=== PATIENT | male | born 2000 | race Caucasian/White ===

== ENCOUNTER → 2021-09-04 16:38 | Outpatient (BNVA) | payer MEDICAID, SELFPAY | PROVIDERS: Visit Provider Emergency Medicine | DX: R31.9 Hematuria, unspecified (principal); K62.5 Hemorrhage of anus and rectum; R19.8 Other specified symptoms and signs involving the digestive system and abdomen | CPT/HCPCS: 81000; 82270; 85014; 85018 ==

== ENCOUNTER → 2021-12-10 18:17 | Outpatient (BNVA) | payer MEDICAID, SELFPAY | PROVIDERS: Visit Provider Emergency Medicine | DX: B34.9 Viral infection, unspecified (principal); Z20.822 Contact with and (suspected) exposure to COVID-19 | CPT/HCPCS: 87426 ==

== ENCOUNTER → 2022-02-12 16:16 | Outpatient (BNVA) | payer MEDICAID, SELFPAY | PROVIDERS: Visit Provider Nurse Practitioner Family | DX: J02.9 Acute pharyngitis, unspecified (principal); J01.00 Acute maxillary sinusitis, unspecified | CPT/HCPCS: 87071; 87880 ==

== ENCOUNTER → 2022-03-24 12:16 | Outpatient (BNVA) | payer MEDICAID, SELFPAY | PROVIDERS: Visit Provider Nurse Practitioner Family | DX: R68.89 Other general symptoms and signs (principal); Z20.822 Contact with and (suspected) exposure to COVID-19 | CPT/HCPCS: 87400; 87426 ==

== ENCOUNTER 2025-01-13 13:10 | Outpatient (CLI) | payer BC, MEDICAID, SELFPAY ==
--- NOTE | 2025-01-13 13:18 | CTR_ITS ---
PROCEDURE INFORMATION: Exam: CT Abdomen And Pelvis With Contrast Exam date and time: 01/13/2025 1:27 PM Age: 24 years old Clinical indication: Abdominal pain; Localized; Left lower quadrant (llq); Llq pain, hematochezia x 1 week; Additional info: Left lower quadrant pain TECHNIQUE: Imaging protocol: Computed tomography of the abdomen and pelvis with contrast. Radiation optimization: All CT scans at this facility use at least one of these dose optimization techniques: automated exposure control; mA and/or kV adjustment per patient size (includes targeted exams where dose is matched to clinical indication); or iterative reconstruction. Contrast material: OMNI 350; Contrast volume: 100 ml; Contrast route: INTRAVENOUS (IV); COMPARISON: No relevant prior studies available. RADIATION DOSE METRICS: Total DLP (mGy-cm): 1525.23 FINDINGS: Lungs: Visualized lung bases appear clear. Liver: Decreased Hounsfield density measurements of the liver in relation to the spleen, could reflect postcontrast appearance or component of fatty infiltration. Liver is upper limits of normal in size and without focal abnormality. Gallbladder and biliary ducts: Normal. No calcified stones. No ductal dilation. Pancreas: Normal. No ductal dilation. Spleen: Spleen appears upper limits of normal and without focal abnormality. Adrenal glands: Normal. No mass. Kidneys and ureters: Kidneys appear unremarkable. No urinary tract stone or obstructive uropathy or perinephric stranding is seen. Stomach and bowel: No bowel obstruction. Scattered gas and stool within the colon. Incomplete distension or poorly distended transverse colon as well as a portion of the sigmoid colon. Equivocal mild wall thickening of portions of the left and distal colon. No pericolonic mesenteric stranding. Appendix: The appendix is visualized. No evidence of appendicitis. Intraperitoneal space: No free fluid or ascites or fluid collection. No free air. Vasculature: Unremarkable. No abdominal aortic aneurysm. Lymph nodes: Unremarkable. No enlarged lymph nodes. Urinary bladder: Unremarkable as visualized. Reproductive: Unremarkable as visualized. Bones/joints: Bone windows show no acute osseous abnormality. Soft tissues: Unremarkable. CT/CT abdomen pelvis w con* [id number] IMPRESSION: 1. Incomplete distension or poorly distended transverse colon as well as a portion of the sigmoid colon. Equivocal mild wall thickening of portions of the left and distal colon. No pericolonic mesenteric stranding. Consider mild nonspecific inflammation or colitis clinically. 2. No acute findings otherwise.
[2025-01-13] MEDS: iohexol 350 mg/mL 500 mL Btl (per mL) IV (13:31)
== END 2025-01-13 13:11 | disposition home or self-care (01) ==
LOC: RAD 13:13
PROVIDERS: PCP Nurse Practitioner Family; Visit Provider Nurse Practitioner Family
DX: K63.89 Other specified diseases of intestine (principal)
CPT/HCPCS: 74177